=== PATIENT | female | born 1960 | race African-American/Black ===

== ENCOUNTER → 2020-09-08 | Outpatient (CLI) | payer OTHER ==
--- NOTE | 2020-09-08 17:33 | RAD ---
EXAM: Left knee, 2 views. HISTORY: Pain. COMPARISON: None. FINDINGS: 2 views of the left knee are obtained. There is no fracture, dislocation or subluxation. Th ere is no joint effusion. There is minimal enthesopathy along the superior patella. IMPRESSION: No acute osseous finding. Electronically signed by: Julia Obando MD (09/08/2020 5:30 PM) [facility]
--- NOTE | 2020-09-09 08:31 | RAD ---
EXAM: XR HAND_RIGHT 2 VIEWS 09/08/2020 12:24 PM CLINICAL INDICATION: Right hand problems COMPARISON: None TECHNIQUE: 2 views of the right hand FINDINGS: No acute fracture. Alignment is normal. Joint spaces are maintained. Bone mineralization i s normal. Mild degenerative changes at the second and third MCP joints with small subchondral cysts a nd osteophytes. No erosions. Chronic appearing ossicle at the tip of the ulnar styloid. 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 Electronically signed by: Kyara Reese MD (09/09/2020 8:28 AM) [id number]
== END ==
LOC: RAD 12:10
PROVIDERS: ATTEND Anesthesiology Pain Medicine
DX: Z02.71 Encounter for disability determination (principal); M19.041 Primary osteoarthritis, right hand; M25.741 Osteophyte, right hand; M25.841 Other specified joint disorders, right hand; M25.562 Pain in left knee
CPT/HCPCS: 73120; 73560